=== PATIENT | male | born 2000 | race African-American/Black ===

== ENCOUNTER 2021-07-02 09:23 | Emergency (ER) | payer OTHER ==
[~2021-07-02] VITALS: Ht 175.3 cm; Wt 74.0 kg
[2021-07-02] MEDS ORDERED: ACETAMINOPHEN 325 MG TAB PO ONE (12:10)
[2021-07-02 12:28] VITALS: BP 117/65
== END 2021-07-02 12:30 | disposition home or self-care (01) ==
LOC: M ED 09:23
DX: S09.90XA Unspecified injury of head, initial encounter (principal); V49.10XA Passenger injured in collision with unspecified motor vehicles in nontraffic accident, initial encounter

== ENCOUNTER 2025-05-11 17:42 | Emergency (ER) | payer OTHER ==
[~2025-05-11] VITALS: Ht 175.3 cm; Wt 88.6 kg
[2025-05-11 17:49] VITALS: TEMP 98.7
[2025-05-11 18:45] LABS: BASO # 0.0 10^3/uL (0.0-0.2); BASO % 0.5 % (0.0-1.0); EOS # 0.1 10^3/uL (0.0-0.5); EOS % 0.9 % (0.0-3.0); KETONE, URINE AUTO RFX NEGATIVE (NEGATIVE); LEUKOCYTE ESTERASE UR AUTO RFX NEGATIVE (NEGATIVE); LYMPH # 2.1 10^3/uL (1.5-5.0); LYMPH % 25.1 % (24.0-44.0); MONO # 0.5 10^3/uL (0.0-0.8); MONO % 6.4 % (2.0-8.0); MUCUS, URINE RFX SMALL (NEGATIVE); NEUTROPHILS # 5.6 10^3/uL (1.5-8.5); NEUTROPHILS % 66.7 % (36.0-66.0); NITRITE, URINE AUTO RFX NEGATIVE (NEGATIVE); PLATELET COUNT, AUTOMATED 250 10^3/uL (150-450); RBC, URINE AUTO RFX 1 /HPF (0-3); SQUAM EPITHELIAL CELL UR AURFX 0 /HPF (0-6); WBC, URINE AUTO RFX 0 /HPF (0-3)
[2025-05-11 19:08] LABS: ALT/SGPT 24 U/L (7.0-40); AST/SGOT 26 U/L (<34); CALCIUM LEVEL 9.9 MG/DL (8.5-10.1); CARBON DIOXIDE LEVEL 28 MMOL/L (20-31); CHLORIDE LEVEL 103 MMOL/L (98-107); CREATININE FOR GFR 1.05 MG/DL (0.70-1.30); GLOMERULAR FILTRATION RATE > 90.0 (>60); POTASSIUM SERUM 4.0 MMOL/L (3.5-5.1); SODIUM LEVEL 142 MMOL/L (136-145)
[2025-05-11 21:17] LABS: Trichomonas vaginalis (AMP) NOT DETECTED (NEGATIVE)
[2025-05-11 21:40] LABS: GC DNA AMPLIFICATION NEGATIVE (NEGATIVE)
[2025-05-11 22:00] VITALS: BP 131/80; O2SAT 98
[2025-05-11] MEDS ORDERED: SUCR1SS PO (22:01)
[2025-05-11] MEDS ORDERED: PANT40TA29 PO (22:01)
== END 2025-05-11 22:21 | disposition home or self-care (01) ==
LOC: M ED 17:42
DX: R10.84 Generalized abdominal pain (principal); N50.812 Left testicular pain; Z79.899 Other long term (current) drug therapy